=== PATIENT | male | born 1945 | race Caucasian/White ===

== ENCOUNTER 2024-01-09 02:01 | Emergency (ER) | payer OTHER, SELFPAY ==
[2024-01-09] VITALS (11 sets, daily range): BP systolic 90–103; BP diastolic 53–71; PULSE 62–91; RESP 16–31; TEMP 34.7; O2SAT 85–100; BMI 22.3
--- NOTE | 2024-01-09 02:09 | DI.RAD.S_ITS ---
PROCEDURE: XR CHEST 1V INDICATIONS: SOB TECHNIQUE: One view of the chest was acquired. COMPARISON: None. 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 Cannot exclude superimposed acute infiltrates. No pleural effusions or pneumothorax. Mediastinum: Mediastinal contours appear normal. Cardiomegaly Bones and chest wall: No suspicious bony lesions. Overlying soft tissues appear unremarkable. IMPRESSION: Cardiomegaly. 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 Cannot exclude superimposed acute infiltrates. Comment: Progress films are recommended. Comment: Final report is concordant with preliminary interpretation provided by [facility]. Dictated by: Juan Jose Andrade M.D. on 01/09/2024 at 7:40 Approved by: Juan Jose Andrade M.D. on 01/09/2024 at 7:42
--- NOTE | 2024-01-09 02:10 | ED_ITS ---
HPI - General Adult General Chief complaint: Syncope Stated complaint: Syncope Time Seen by Provider: 01/09/24 02:01 Source: patient and EMS Mode of arrival: EMS Limitations: no limitations History of Present Illness HPI narrative: 78-year-old male. History pulmonary fibrosis. Has oxygen at home that he uses occasionally. Is also on multiple blood pressure medications and also Lasix. He states that this evening he was camping at a local [place]ground. He got some cramps in his legs. He jumped up out of the bunk very quickly because of the cramps and fell to the ground. Reports no injuries from the event. No seizure- like activity. His contacted EMS because he seemed to be unconscious for an extended period of time. Here in the emergency department he denies chest pain, palpitations. Does have shortness of breath with exertion that has been going on for several weeks. He was scheduled for pulmonary function tests sometime in the next month. No abdominal pain or nausea vomiting. He currently does not have any cramping. He has passed out in the past specifically was standing up. He thinks it is because his blood pressure gets too low because of his medications. Related Data Allergies Allergy/AdvReac Type Severity Reaction Status Date / Time No Known Drug Allergies Allergy Verified 01/09/24 02:57 Review of Systems Review of Systems Narrative: See HPI Patient History Social History Smoking Status: Never smoker Exam Initial Vital Signs Initial Vital Signs: Vital Signs Temperature 94.4 F L 01/09/24 02:03 Pulse Rate 63 01/09/24 02:03 Respiratory Rate 16 01/09/24 02:03 Blood Pressure 98/71 01/09/24 02:03 Pulse Oximetry 96 01/09/24 02:03 Oxygen Delivery Method Room Air 01/09/24 02:03 Const General: cooperative, comfortable and No ill appearing HENMT Head: normal to inspection and normocephalic Resp Effort & Inspection: normal respiratory effort Auscultation: clear to auscultation bilaterally Cardio Rate: regular rate Rhythm: regular rhythm GI Inspection: normal to inspection and non-distended Skin General: no rashes or lesions noted Neuro General: patient alert, patient awake, patient oriented x3 and moves all extremities Extrem General: normal to inspection and capillary refill normal Course Orders Ordered: ED Orders 01/09/24 01:50 Complete Blood Count AUTO DIFF Stat Comprehensive Metabolic Panel Stat Ethanol (ETOH) Stat Lipase Stat NT-proBNP (BNP-Adult 18+) Stat Troponin & CK Cardiac Panel Stat 01/09/24 02:02 EKG-12 Lead Stat 01/09/24 02:09 XR chest 1V Stat 01/09/24 03:28 Respiratory Panel (Film Array) Stat Discontinued Medications Ondansetron HCl (Ondansetron 4 Mg/2 Ml Inj) 4 mg IV NOW ONE Stop: 01/09/24 02:52 Last Admin: 01/09/24 02:54 Dose: 4 mg Documented By: GERMAINE Vital Signs Vital signs: Vital Signs - 8 hr 01/09/24 02:03 01/09/24 02:06 01/09/24 02:07 Temperature 94.4 F L Pulse Rate 63 63 88 Respiratory Rate 16 30 H 31 H Blood Pressure 98/71 Pulse Oximetry 96 91 92 Oxygen Delivery Method Room Air 01/09/24 02:07 01/09/24 02:30 01/09/24 02:30 Temperature Pulse Rate 62 Respiratory Rate 26 H Blood Pressure 98/71 93/53 L Pulse Oximetry 91 Oxygen Delivery Method 01/09/24 03:00 01/09/24 03:24 01/09/24 03:24 Temperature Pulse Rate 85 91 H Respiratory Rate 27 H 18 Blood Pressure 103/61 Pulse Oximetry 98 85 L Oxygen Delivery Method 01/09/24 03:30 01/09/24 03:30 Temperature Pulse Rate 86 Respiratory Rate 31 H Blood Pressure 102/57 L Pulse Oximetry 97 Oxygen Delivery Method Medical Decision Making Lab Data Lab results reviewed: Yes I reviewed the patient's lab results. 01/09/24 01:50 01/09/24 01:50 Labs: Lab Results 01/09/24 01/09/24 01/09/24 Range/Units 01:50 01:50 03:28 WBC 8.8 (4.5-11.0) X10^3/uL RBC 4.91 (4.5-5.9) X10^6/uL Hgb 14.6 (13.5-17.5) g/dL Hct 42.9 (41-53) % MCV 87.4 (80-100) fL MCH 29.8 (26-34) PG MCHC 34.2 (30-36) % RDW 14.1 (11.6-14.8) % Plt Count 220 (150-400) X10^3/uL Neut % (Auto) 61.4 (50-75) % Lymph % (Auto) 17.8 L (25-40) % [place] % (Auto) 13.7 (3-14) % Eos % (Auto) 5.5 H (2-4) % Baso % (Auto) 1.6 (0-2) % Neut # (Auto) 5400 (2665-6034) /uL Lymph # (Auto) 1600 (8566-9094) /uL [place] # (Auto) 1200 H (0-900) /uL Eos # (Auto) 500 H (0-450) /uL Baso # (Auto) 100 (0-100) /uL Sodium 138 (137-145) mmol/L Potassium 5.1 (3.4-5.1) mmol/L Chloride 104 (98-107) mmol/L Carbon Dioxide 28 (22-32) mmol/L BUN 36 H (9-20) mg/dL Creatinine 1.70 H (0.66-1.25) mg/dL Estimated GFR 41 L (>60) mL/min BUN/Creatinine Ratio 21.2 (6-22) Glucose 121 H (80-110) mg/dL Calcium 9.3 (8.4-10.2) mg/dL Total Bilirubin 0.7 (0.2-1.3) mg/dL AST 25 (17-59) IU/L ALT 17 (<50) IU/L Alkaline Phosphatase 48 (38-126) U/L Total Creatine Kinase 55 (55-170) U/L Troponin I 0.016 (0.01-0.034) ng/mL NT-Pro-B Natriuret Pep 2240 H Cancelled (<450) pg/mL Total Protein 7.1 (6.3-8.2) g/dL Albumin 4.0 (3.5-5.0) g/dL Globulin 3.1 (1.7-4.1) g/dL Albumin/Globulin Ratio 1.3 (1.0-2.8) Lipase 66 (23-300) U/L Ethyl Alcohol < 10 ( - 10) mg/dL Chlamy pneumoniae PCR Not detected (Not Detect) Adenovirus (PCR) Not detected (Not Detect) B.parapertussis DNA PCR Not detected (Not Detecte) Coronavirus OC43 (PCR) Not detected (Not Detect) Coronavirus HKU1 (PCR) Not detected (Not Detect) Coronavirus 229E (PCR) Not detected (Not Detect) SARS-CoV-2 (PCR) Not detected (Not Detecte) Coronavirus NL63 (PCR) Not detected (Not Detect) Human Metapneumovir PCR Not detected (Not Detect) Influenza Type A (PCR) Not detected (Not Detect) Influenza Type B (PCR) Not detected (Not Detect) M. pneumoniae (PCR) Not detected (Not Detect) Parainfluenza 1 (PCR) Not detected (Not Detect) Parainfluenza 2 (PCR) Not detected (Not Detect) Parainfluenza 3 (PCR) Not detected (Not Detect) Parainfluenza 4 (PCR) Not detected (Not Detect) RSV (PCR) Not detected (Not Detect) Entero/Rhino (PCR) Not detected (Not Detect) Imaging Data Chest x-ray: Radiologist's Impression: Multifocal bilateral pulmonary infiltrates. Follow-up chest radiograph after appropriate treatment to determine resolution ECG Data Attestation: I personally reviewed and interpreted this ECG as follows: Interpretation: Sinus rhythm Ventricular rate of 62 Normal axis One PVC No ST T wave changes MDM Narrative Medical decision making narrative: Patient clinically does not have pneumonia. No fevers. No coarse breath sounds. Lungs are clear. No leukocytosis. He does have a cough but this has been going on for months now. He has not clinically in heart failure. Low suspicion for ACS. Respiratory panel was negative. Patient ambulate around the emergency department without issue although when he got back into bed he did become hypoxic. He quickly recovered with oxygen by nasal cannula. I had a discussion with him regarding this. He has oxygen at home and also has a small oxygen tank in his camper. Recommended that he use this as needed. I did recommend that he continue with plan of obtaining a pulmonary function test. I suspect that his syncopal episode was related to a drop in blood pressure because he stood up very quickly. Will discharge patient home with return precautions. He expressed understanding and agreement with plan. Discharge Plan Departure Patient Disposition: Home Clinical Impression: Syncope Instructions: DI for Syncope in Adults (Fainting) Activity Restrictions/Additional Instructions: I do recommend that you continue to take all of your medications as directed the oxygen that you have home as needed if you become short of breath with exertion be careful with changing positions specifically from lying down to standing up. Contact your primary doctor for follow-up. Stand Alone Forms: Patient Portal/API
[2024-01-09 02:25] LABS: Add Manual Diff / Slide Review NO; Basophils Absolute Auto 100 /uL (0-100); Basophils Percent Auto 1.6 % (0-2); Eosinophils Absolute Auto 500 /uL (0-450); Eosinophils Percent Auto 5.5 % (2-4); Hematocrit 42.9 % (41-53); Hemoglobin 14.6 g/dL (13.5-17.5); Lymphocytes Absolute Auto 1600 /uL (1100-4500); Lymphocytes Percent Auto 17.8 % (25-40); Mean Corpuscular HGB Conc 34.2 % (30-36); Mean Corpuscular Hemoglobin 29.8 PG (26-34); Mean Corpuscular Volume 87.4 fL (80-100); Monocytes Absolute Auto 1200 /uL (0-900); Monocytes Percent Auto 13.7 % (3-14); Neutrophils Absolute Auto 5400 /uL (1500-7000); Neutrophils Percent Auto 61.4 % (50-75); Platelet Count 220 X10^3/uL (150-400); Red Blood Cell Count 4.91 X10^6/uL (4.5-5.9); Red Cell Distribution Width 14.1 % (11.6-14.8); White Blood Cell Count 8.8 X10^3/uL (4.5-11.0)
[2024-01-09 02:36] LABS: Alanine Aminotransferase 17 IU/L (<50); Albumin Globulin Ratio 1.3 (1.0-2.8); Alkaline Phosphatase 48 U/L (38-126); Aspartate Aminotransferase 25 IU/L (17-59); BUN Creatinine Ratio 21.2 (6-22); Bilirubin Total 0.7 mg/dL (0.2-1.3); Blood Urea Nitrogen 36 mg/dL (9-20); Calcium 9.3 mg/dL (8.4-10.2); Carbon Dioxide 28 mmol/L (22-32); Chloride 104 mmol/L (98-107); Creatine Kinase 55 U/L (55-170); Estimated Glomerular Filt Rate 41 mL/min (>60); Globulin 3.1 g/dL (1.7-4.1); Glucose 121 mg/dL (80-110); HEMOLYSIS 26 (0-50); Lipase 66 U/L (23-300); Potassium 5.1 mmol/L (3.4-5.1); Sodium 138 mmol/L (137-145); Total Protein 7.1 g/dL (6.3-8.2)
[2024-01-09 02:47] LABS: Troponin I 0.016 ng/mL (0.01-0.034)
[2024-01-09] MEDS: ONDANSETRON 4 MG/2 ML INJ IV (02:54)
[2024-01-09 03:51] LABS: Ethanol (ETOH) < 10 mg/dL
[2024-01-09 04:02] LABS: NT-proBNP (BNP-Adult 18+) 2240 pg/mL (<450)
[2024-01-09 04:59] LABS: Adenovirus Not Detected (Not Detect); B. parapertussis Not Detected (Not Detecte); Bordetella pertussis Not Detected (Not Detect); Chlamydophila pneumoniae Not Detected (Not Detect); Coronavirus 229E Not Detected (Not Detect); Coronavirus HKU1 Not Detected (Not Detect); Coronavirus NL 63 Not Detected (Not Detect); Coronavirus OC43 Not Detected (Not Detect); Human Metapneumovirus Not Detected (Not Detect); Human Rhinovirus/Enterovirus Not Detected (Not Detect); Influenza A Not Detected (Not Detect); Influenza B Not Detected (Not Detect); Mycoplasma pneumoniae Not Detected (Not Detect); Parainfluenza Virus 1 Not Detected (Not Detect); Parainfluenza Virus 2 Not Detected (Not Detect); Parainfluenza Virus 3 Not Detected (Not Detect); Parainfluenza Virus 4 Not Detected (Not Detect); Respiratory Syncytial Virus Not Detected (Not Detect); SARS- CoV-2 Not Detected (Not Detecte)
== END 2024-01-09 05:22 | disposition home or self-care (01) ==
PROVIDERS: Emergency Provider Emergency Medicine
DX: R55 Syncope and collapse (principal)
CPT/HCPCS: 36415; 71045; 80053; 80320; 82550; 83690; 83880; 84484; 85025; 87633; 93005; 96374; 99284; J2405